=== PATIENT | female | born 1960 | race Caucasian/White ===

== ENCOUNTER 2018-11-23 03:01 | Inpatient (IN) | payer MEDICAID, OTHER ==
[~2018-11-23] VITALS: Ht 160 cm; Wt 84.8 kg
[2018-11-23] MEDS ORDERED: KETOROLAC 15MG/ML VIAL IV ONE (04:45)
[2018-11-23 05:29] LABS: BASOPHILS % 0.6 % (0.0-2.0); EOSINOPHILS % 2.9 % (0.0-5.0); HEMATOCRIT. 43.3 % (36.0-48.0); HEMOGLOBIN. 14.5 g/dL (12.0-16.0); MEAN CORPUSCULAR HEMOGLOBIN 31.2 pg (28.0-32.0); MEAN CORPUSCULAR VOLUME 92.7 fL (81.0-99.0); MEAN PLATELET VOLUME 8.3 fl (7.4-10.4); MONOCYTES % 7.2 % (2.0-8.0); NEUTROPHILS % 67.3 % (40.0-76.0); PLATELET 293 x1000/uL (130-400); RED BLOOD CELL COUNT 4.67 mill/uL (4.2-5.4); RED CELL DISTRIBUTION WIDTH 13.8 % (11.6-14.6)
[2018-11-23 05:31] LABS: CHLORIDE 107 mEq/L (98-107)
[2018-11-23] MEDS ORDERED: LEVOFLOXACIN 750MG PREMIX 150 ML IV NR (06:00)
[2018-11-23] MEDS ORDERED: IOHEXOL-350 100 ML BOTTLE ONE (06:55)
[2018-11-23] MEDS ORDERED: NA PHOS,M-B/NA PHOS,DI-BA ENEMA 118ML PR PRN (09:15)
[2018-11-23] MEDS ORDERED: CLONIDINE 0.1MG TABLET PO PRN (09:15)
[2018-11-23] MEDS ORDERED: DOCUSATE SODIUM 100MG CAPSULE PO PRN (09:15)
[2018-11-23] MEDS ORDERED: IPRATROPIUM/ALBUTEROL 0.5-3(2.5)MG/3ML NEB INH PRN (09:15)
[2018-11-23] MEDS ORDERED: KETOROLAC 15MG/ML VIAL IV PRN (09:15)
[2018-11-23] MEDS ORDERED: LORAZEPAM 0.5MG TABLET PO PRN (09:15)
[2018-11-23] MEDS ORDERED: ZOLPIDEM TARTRATE 5MG TABLET PO PRN (09:15)
[2018-11-23] MEDS ORDERED: NITROGLYCERIN 0.4MG TABLET SL SL PRN (09:15)
[2018-11-23] MEDS ORDERED: GUAIFENESIN 200MG/10ML SUGAR FREE UDC PO PRN (09:15)
[2018-11-23] MEDS ORDERED: ONDANSETRON HCL 4MG/2ML INJ IV PRN (09:15)
[2018-11-23] MEDS ORDERED: MAGNESIUM/ALUMINUM HYDROXIDE/SIMETHICONE 30ML UDC PO PRN (09:15)
[2018-11-23 10:10] VITALS: BP 139/75
[2018-11-23] MEDS ORDERED: IBUP-2321 MT (10:20)
[2018-11-23] MEDS ORDERED: INFLUENZA VIRUS VACCINE(AFLURIA) 0.5ML SYR IM ONE (10:30)
[2018-11-23 11:30] VITALS: BP 139/75
[2018-11-23] MEDS: ENOXAPARIN 40MG/0.4ML SYR SUBCUT SCH (11:45)
[2018-11-23] MEDS: ACETAMINOPHEN 325MG TABLET PO PRN ×2 (11:45→16:15)
[2018-11-23 20:09] LABS: CREATINE KINASE 150 IU/L (26-192)
[2018-11-23 20:10] LABS: CREATINE KINASE MB FRACTION 2.1 ng/mL (0.5-3.6)
[2018-11-23 20:43] VITALS: BP 144/74
[2018-11-23] MEDS: METOPROLOL TARTRATE 25MG TABLET PO SCH (20:45)
[2018-11-23] MEDS: FAMOTIDINE 20MG TABLET PO SCH (20:45)
[2018-11-24] VITALS: BP 124/67
[2018-11-24] MEDS: ACETAMINOPHEN 325MG TABLET PO PRN ×2 (04:09→08:49)
[2018-11-24 04:42] VITALS: BP 112/53
[2018-11-24 08:00] VITALS: BP 132/72
[2018-11-24] MEDS: METOPROLOL TARTRATE 25MG TABLET PO SCH (08:44)
[2018-11-24] MEDS: FAMOTIDINE 20MG TABLET PO SCH (08:45)
[2018-11-24] MEDS: ENOXAPARIN 40MG/0.4ML SYR SUBCUT SCH (08:49)
[2018-11-24] MEDS ORDERED: ASPIRIN 325MG EC TABLET PO SCH (09:00)
[2018-11-24 10:01] LABS: CREATINE KINASE 123 IU/L (26-192)
[2018-11-24 10:03] LABS: CREATINE KINASE MB FRACTION 1.7 ng/mL (0.5-3.6)
[2018-11-24 11:57] VITALS: BP 132/72
== END 2018-11-24 13:20 | disposition home or self-care (01) | DRG 313 ==
LOC: ER 03:01 → 6WST 06:02 → EDBEDREQ 06:04 → ENRESERV 07:59
PROVIDERS: ADMIT Internal Medicine; ATTEND Internal Medicine
DX: R07.89 Other chest pain (principal); E83.51 Hypocalcemia; E78.00 Pure hypercholesterolemia, unspecified; I10 Essential (primary) hypertension; Z98.51 Tubal ligation status
CPT/HCPCS: 36415; 71045; 71275; 80061; 82550; 82553; 83036; 83605; 83880; 84145; 84484; 85379; 90686; 93005; 93970; 96365; 96375; 99285; J1650; J1885; J1956; Q9967

== ENCOUNTER 2025-10-13 09:49 | Emergency (ER) | payer OTHER ==
[~2025-10-13] VITALS: Ht 167.6 cm; Wt 91.0 kg
[~2025-10-13 09:49] MED LIST: IBUP-2321 MT
[2025-10-13 09:59] VITALS: O2SAT 99
[2025-10-13] MEDS ORDERED: IBUP-1455 MT (10:32)
[2025-10-13] MEDS: IBUPROFEN 800MG TABLET PO ONE (10:52)
[2025-10-13 11:27] LABS: CLARITY URINE CLEAR (CLEAR); COLOR URINE YELLOW (YELLOW); GLUCOSE URINE NEGATIVE (NEGATIVE); KETONES URINE NEGATIVE (NEGATIVE); LEUKOCYTE ESTERASE URINE TRACE (NEGATIVE); NITRITE URINE NEGATIVE (NEGATIVE); OCCULT BLOOD URINE NEGATIVE (NEGATIVE); PH URINE 7.5 (4.5-8.0); PROTEIN URINE NEGATIVE (NEGATIVE); SPECIFIC GRAVITY URINE 1.006 (1.005-1.030); UROBILINOGEN URINE 0.2 E.U./dL (0.2-1.0)
[2025-10-13 11:49] LABS: RBC URINE 0-2 /hpf (0-2); SQUAMOUS EPITHELIAL CELL URINE FEW /lpf (RARE/1+)
[2025-10-13 11:50] LABS: BACTERIA URINE NONE SEEN
[2025-10-13 11:51] LABS: WBC URINE 0-2 /hpf (0-2)
[2025-10-13 12:19] LABS: BASOPHILS % 0.6 % (0.0-2.0); EOSINOPHILS % 2.0 % (0.0-5.0); HEMATOCRIT. 41.5 % (36.0-48.0); HEMOGLOBIN. 13.8 g/dL (12.0-16.0); LYMPHOCYTES % 25.5 % (20.0-50.0); MEAN PLATELET VOLUME 8.2 fl (7.4-10.4); MONOCYTES % 6.9 % (2.0-8.0); NEUTROPHILS % 65.0 % (40.0-76.0); PLATELET 296 x1000/uL (130-400); RED BLOOD CELL COUNT 4.51 mill/uL (4.2-5.4); RED CELL DISTRIBUTION WIDTH 13.8 % (11.6-14.6)
[2025-10-13 12:35] LABS: CREATININE 0.7 mg/dL (0.6-1.0); UREA NITROGEN BLOOD 8 mg/dL (9-23)
[2025-10-13 12:36] LABS: PROTEIN TOTAL 7.2 g/dL (6.0-8.3)
[2025-10-13 12:37] LABS: ASPARTATE AMINOTRANSFERASE 18 IU/L (<34); BILIRUBIN DIRECT 0.1 mg/dL (<=3.0); BILIRUBIN TOTAL 0.4 mg/dL (0.1-1.0)
[2025-10-13 12:45] VITALS: BP 175/95; PULSE 77; RESP 15; TEMP 36.7; O2SAT 99
== END 2025-10-13 12:50 | disposition home or self-care (01) ==
LOC: ER 09:49
DX: N81.4 Uterovaginal prolapse, unspecified (principal); E78.00 Pure hypercholesterolemia, unspecified; I11.9 Hypertensive heart disease without heart failure; Z98.51 Tubal ligation status
CPT/HCPCS: 80076; 80048; 81003; 85025; 36415; 99284; Z7610